=== PATIENT | male | born 1980 | race Caucasian/White ===

== ENCOUNTER 2019-08-10 12:26 | Emergency (ER) | payer SELFPAY ==
[~2019-08-10] VITALS: Ht 185.4 cm; Wt 63.5 kg
[~2019-08-10 12:26] MED LIST: ASPI-621 PO
[2019-08-10 13:00] VITALS: BP 143/82
--- NOTE | 2019-08-10 13:51 | RAD ---
EXAM: Right elbow, 3 views; chest and right ribs, 4 views. HISTORY: Pain. Fall. COMPARISON: None. FINDINGS: Right elbow: 3 views of the right elbow are obtained. There is no fracture, dislocation or subluxation. There is soft tissue swelling and suspected soft tissue gas due to a laceration overlying the olecranon. No radiodense foreign body is seen. Chest and right ribs: A frontal view of the chest and 3 views of the right ribs are obtained. There is no fracture, dislocation or subluxation. There is mild biapical emphysema with pleural parenchymal scarring. The heart is normal in size. There are suspected displaced fractures along the anterior medial right 8th, 9th and 10th ribs near the costochondral junctions. There is also a displaced fracture involving the posterior lateral right 10th rib IMPRESSION: 1. Displaced anterior medial right 8th, 9th and 10th rib fractures and posterior lateral right 10th rib fracture. 2. Suspected soft tissue hematoma with laceration overlying the olecranon. No elbow fracture is seen. 3. No acute pulmonary finding. Electronically signed by: Juana Cardenas MD (08/10/2019 1:48 PM) [place] [id number]
[2019-08-10] MEDS ORDERED: IBUP-1007 PO (13:59)
[2019-08-10] MEDS ORDERED: CEPH-264 PO (13:59)
[2019-08-10] MEDS ORDERED: HYDR-3164 PO (13:59)
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
== END 2019-08-10 14:29 | disposition home or self-care (01) ==
LOC: ER 12:26
DX: S22.41XA Multiple fractures of ribs, right side, initial encounter for closed fracture (principal); S50.01XA Contusion of right elbow, initial encounter; S51.001A Unspecified open wound of right elbow, initial encounter; Z98.890 Other specified postprocedural states; W10.8XXA Fall (on) (from) other stairs and steps, initial encounter; Y93.89 Activity, other specified; Y92.099 Unspecified place in other non-institutional residence as the place of occurrence of the external cause; Y99.0 Civilian activity done for income or pay
CPT/HCPCS: 71101; 73080; 99284